=== PATIENT | male | born 1955 | race Caucasian/White ===

== ENCOUNTER 2024-03-18 08:06 | Emergency (ER) | payer MEDICARE, OTHER ==
[2024-03-18] VITALS (8 sets, daily range): BP systolic 124–138; BP diastolic 59–73
[~2024-03-18] VITALS: Ht 190.5 cm; Wt 108.0 kg
[2024-03-18] MEDS ORDERED: KETOROLAC TROMETHAMINE 30 MG/ML SDV IM ONE (08:20)
[2024-03-18] MEDS ORDERED: ACETAMINOPHEN 500 MG TAB PO ONE (08:20)
[2024-03-18] MEDS ORDERED: IBUPROFEN600 MG PO (09:53)
== END 2024-03-18 10:06 | disposition home or self-care (01) ==
LOC: ED 08:06
DX: R07.81 Pleurodynia (principal); I25.2 Old myocardial infarction; Z95.5 Presence of coronary angioplasty implant and graft